=== PATIENT | female | born 1950 | race Caucasian/White ===

== ENCOUNTER 2022-12-07 13:10 | Emergency (ER) | payer MEDICARE, SELFPAY ==
[2022-12-07 13:42] VITALS: BP 121/74; PULSE 81; RESP 16; TEMP 37.1; O2SAT 97; BMI 17.7
--- NOTE | 2022-12-07 14:07 | CRLHL7_ITS ---
For Patients: As a result of the Cures Act, medical imaging exams and procedure reports are released immediately into your electronic medical record. You may view this report before your referring provider. If you have questions, please contact your health care provider. Indication: Pain, edema, erythema Technique: Three views right wrist Comparison: None Findings: No fracture or dislocation. Normal alignment. No significant degenerative changes. Calcification in TFCC suggesting CPPD. Ulna minus variance Impression: 1. no fracture or dislocation. If there is clinical concern for radiographically occult scaphoid fracture, recommend immobilization with repeat imaging in 10-14 days. 2. Calcification in TFCC suggesting CPPD/pseudogout Dictated by Bill Marr MD @ 12/07/2022 2:47:20 PM (Electronically Signed)
--- NOTE | 2022-12-07 15:32 | ED.GENADULT ---
HPI - General Adult General Date Seen: 12/07/22 Chief complaint: Extremity Pain/Injury, Upper Stated complaint: Left arm swollen Time Seen by Provider: 12/07/22 13:41 Source: patient Mode of arrival: ambulatory Limitations: no limitations History of Present Illness HPI narrative: Patient is a 72-year-old woman who presents for evaluation of pain swelling and redness in her right wrist which extends a little upper arm and into her hand. This started a few days ago and has been getting worse. She has not had any fevers or systemic complaints. No injuries that she is aware of. Denies previous similar symptoms. She denies history of any inflammatory arthritis such as gout, pseudogout, rheumatoid arthritis. She does have a history of osteoarthritis. Related Data Home Medications Medication Instructions Recorded Confirmed No Known Home Medications 12/07/22 12/07/22 Allergies Allergy/AdvReac Type Severity Reaction Status Date / Time No Known Drug Allergies Allergy Verified 12/07/22 13:49 Review of Systems Status of ROS: Reports: 6 or more systems reviewed and unremarkable except as noted in History and below PFSH PFS Social History Smoking Status: Never smoker Do you use any of these nicotine containing products: None Second hand tobacco smoke exposure: No How often do you have a drink containing alcohol: never AUDIT-C Alcohol total score: 0 Non-prescribed substance use: denies use Exam Narrative: Exam Narrative: Vital signs reviewed In general, an alert, nontoxic woman. Very anxious. Extremities: Examination of the right upper extremity shows redness and swelling which is most localized over the wrist. She has some pain with movement of the wrist. Distal CMS is normal. There is some swelling in the hand and a little bit up into the forearm. The upper arm and elbow are normal. Mild warmth is noted. Skin: Otherwise warm dry well perfused. No redness extending up the arm. Const: Vital Signs, click to edit/add: Vital Signs - 24 hr 12/07/22 13:42 Temperature 98.8 F Pulse Rate [Left P ulse Oximeter] 81 Respiratory Rate 16 Blood Pressure [Le ft Upper Arm] 121/74 Pulse Oximetry 97 Oxygen Delivery Me thod Room Air Course Course Hospital Course: She has x-rays of the right wrist which by my review show no acute process. Interestingly, radiology reads these as showing some calcification of the TFCC suggesting possible pseudogout. I have discussed with her that I think most likely her symptoms are related to an inflammatory arthritis such as gout or pseudogout. I do think she has a little bit of an effusion in the joint and we talked about trying to get some fluid out to send for testing. Patient was in an out of her room 5 or 6 times going back out to the front end drupal developer to talk with them about various things, she is clearly very anxious. Her son finally came back with her, and encouraged her to proceed with aspiration, so I did attempt that, however before I was able to proceed past anesthetizing the skin she said it was too much and she did not want to continue. Therefore that was aborted. Did discuss that while I am less suspicious of infection, this cannot be entirely ruled out without fluid aspiration. For now, plan will be a wrist splint and prednisone, assuming this is an inflammatory arthritis she should improve rapidly. If she is getting worse she needs to come back right away. Otherwise primary care follow-up next week. She mentions symptoms of depression to the nurse, no suicidality. This can be followed up with primary care as well. Vital Signs Vital signs: Initial Vital Signs Temperature 98.8 F 12/07/22 13:42 Temperature Source Temporal Artery Scan 12/07/22 13:42 Pulse Rate 81 12/07/22 13:42 Respiratory Rate 16 12/07/22 13:42 Blood Pressure 121/74 12/07/22 13:42 Blood Pressure Mean 89 12/07/22 13:42 Blood Pressure Position Sitting 12/07/22 13:42 Pulse Oximetry 97 12/07/22 13:42 Oxygen Delivery Method Room Air 12/07/22 13:42 Vital Signs Temperature 98.8 F 12/07/22 13:42 Pulse Rate 81 12/07/22 13:42 Respiratory Rate 16 12/07/22 13:42 Blood Pressure 121/74 12/07/22 13:42 Pulse Oximetry 97 12/07/22 13:42 Oxygen Delivery Method Room Air 12/07/22 13:42 Temperature 98.8 F 12/07/22 13:42 Pulse Rate 81 12/07/22 13:42 Respiratory Rate 16 12/07/22 13:42 Blood Pressure 121/74 12/07/22 13:42 Pulse Oximetry 97 12/07/22 13:42 Oxygen Delivery Method Room Air 12/07/22 13:42 Discharge Plan Discharge Clinical Impression: Arthritis of wrist, right Patient Disposition: Home, Self-Care Condition: Stable Instructions: Gout (ED) Additional Instructions: My suspicion is that your symptoms may be due to gout or pseudogout, but I cannot be certain. For now, take the prednisone as prescribed, use the wrist splint for comfort. If your wrist seems to be getting worse over the next 24-48 hours rather than improved, you should come back for re-evaluation. Otherwise, follow up in clinic next week. Prednisone: Take 3 tabs daily for 3 days, then 2 tabs daily for 3 days, then 1 tab daily for 3 days. Prescriptions: No Action No Known Home Medications Stand Alone Forms: [employer] Info Instructions
== END 2022-12-07 15:35 | disposition home or self-care (01) ==
LOC: ED 14:35
PROVIDERS: Emergency Provider Emergency Medicine
DX: M13.831 Other specified arthritis, right wrist (principal)
CPT/HCPCS: 29125; 73110; 99283; 99284

== ENCOUNTER 2023-05-27 13:34 | Outpatient (CLI) | payer MEDICARE, SELFPAY ==
--- NOTE | 2023-05-27 14:00 | CRLHL7_ITS ---
For Patients: As a result of the Century Cures Act, medical imaging exams and procedure reports are released immediately into your electronic medical record. You may view this report before your referring provider. If you have questions, please contact your health care provider. BILATERAL SCREENING MAMMOGRAM WITH COMPUTER-AIDED DETECTION AND TOMOSYNTHESIS TECHNIQUE: CC and MLO views were obtained. These mammographic images have been obtained using full-field digital technique. These mammographic images were interpreted with the benefit of computer-aided detection. Breast Tomosynthesis was used in this interpretation. COMPARISON FILM: 11/17/18, 02/03/15, 02/13/11. FINDINGS: The breasts are extremely dense, which lowers the sensitivity of mammography IMPRESSION: There is no radiographic evidence for malignancy. ASSESSMENT: BI-RADS Category 2: Benign RECOMMENDATION: Routine screening mammogram in 1 year. A lay language report of this examination will be provided to the patient. Boris Lawson M.D. Diagnostic Radiologist [email or web address] PAUL/florence / be/Dictated by: Boris Lawson MD @ 05/28/2023 11:19:00 AM (Electronically Signed)
== END 2023-05-27 13:35 | disposition home or self-care (01) ==
LOC: MAMMO 13:35
DX: Z12.31 Encounter for screening mammogram for malignant neoplasm of breast (principal); R92.2 Inconclusive mammogram
CPT/HCPCS: 77063; 77067